=== PATIENT | male | born 1955 | race Two or more races ===

== ENCOUNTER 2018-04-14 11:08 | Outpatient (CLI) | payer MEDICARE, BC | END 2018-04-14 23:59 | disposition home or self-care (01) | LOC: WOU 11:08 | PROVIDERS: ATTEND Specialist | DX: L59.8 Other specified disorders of the skin and subcutaneous tissue related to radiation (principal); R05 Cough; J98.11 Atelectasis; Z85.818 Personal history of malignant neoplasm of other sites of lip, oral cavity, and pharynx; I25.10 Atherosclerotic heart disease of native coronary artery without angina pectoris; Z95.5 Presence of coronary angioplasty implant and graft; I10 Essential (primary) hypertension; Z79.02 Long term (current) use of antithrombotics/antiplatelets; Z79.82 Long term (current) use of aspirin; Z79.899 Other long term (current) drug therapy | CPT/HCPCS: 71045-TC; G0463 ==